=== PATIENT | female | born 1940 | race Hispanic/Latino ===

== ENCOUNTER 2017-02-15 15:29 | Emergency (ER) | payer SELFPAY ==
[~2017-02-15] VITALS: Ht 165.1 cm; Wt 63.5 kg
--- NOTE | ~2017-02-15 | EKG ---
[facility] [address] [facility] [place], [place] [address] Draft EK completed, results pending confirmation PATIENT NAME: DONNA ORLANDO Electrocardiogram DATE OF : 38 PHYSICIAN: PRELIMINARY REPORT #: [id number] REPORT IS CONFIDENTIAL AND NOT TO BE RELEASED WITHOUT AUTHORIZATION
== END 2017-02-15 19:18 | disposition home or self-care (01) ==
LOC: ED 15:29
DX: R07.2 Precordial pain (principal); E78.00 Pure hypercholesterolemia, unspecified; Z88.0 Allergy status to penicillin
CPT/HCPCS: 71020; 80053; 84484; 85025; 93005; 93010; 99284